=== PATIENT | female | born 1955 | race African-American/Black ===

== ENCOUNTER 2021-01-04 16:08 | Emergency (ER) | payer MEDICARE, OTHER ==
[~2021-01-04] VITALS: Ht 167.6 cm; Wt 70.0 kg
[2021-01-04] MEDS ORDERED: ACETAMINOPHEN 325MG TABLET PO ONE (17:00)
[2021-01-04] MEDS ORDERED: TOPUD MT (17:59)
[2021-01-04] MEDS ORDERED: IBUPROFEN 400MG TABLET PO ONE (18:15)
[2021-01-04 18:41] VITALS: BP 156/86
== END 2021-01-04 18:42 | disposition home or self-care (01) ==
LOC: ER 16:08
DX: M79.675 Pain in left toe(s) (principal); M79.672 Pain in left foot; I10 Essential (primary) hypertension; Y93.01 Activity, walking, marching and hiking
CPT/HCPCS: 73630; 99283; Z7610